=== PATIENT | female | born 1975 | race Caucasian/White ===

== ENCOUNTER 2022-07-06 10:42 | Day surgery (SDC) | payer MEDICAID, SELFPAY ==
[2022-07-06] VITALS (10 sets, daily range): BP systolic 105–139; BP diastolic 35–85; PULSE 57–68; RESP 16–20; TEMP 36–37.1; O2SAT 91–100; BMI 22.4
[2022-07-06] MEDS: LACTATED RINGERS 1000 ML 1,000 ML 100 ML IV ×2 (11:00→13:10)
[2022-07-06 11:15] LABS: Ur HCG Qualitative* Negative (Negative)
[2022-07-06] MEDS: SODIUM CHLORIDE 0.9 % (FLUSH) 10 ML SYRINGE IVF (11:30)
[2022-07-06] MEDS: ETHYL CHLORIDE 1 APPLICATION 1 APPLIC TOPICAL (11:30)
[2022-07-06] MEDS: LIDOCAINE 1% MDV 20 ML INJECTION (12:25)
[2022-07-06] MEDS: BUPIVACAINE 0.25% 30 ML 20 ML INJECTION (12:25)
[2022-07-06] MEDS: CEFAZOLIN 2 GM INJ IVP (13:07)
[2022-07-06] MEDS: BUPIVACAINE 0.25% 30 ML INJECTION (13:29)
--- NOTE | 2022-07-06 13:44 | SUR.OPER ---
deficit was 100ml
--- NOTE | 2022-07-06 13:50 | SUR.OPER ---
Cauterization of uterine perforation.
--- NOTE | 2022-07-06 13:50 | PM.PROC ---
Procedure Note Time Seen by Provider: 13:50 Date Seen: 07/06/22 Date of procedure: 07/06/22 Will [facility] bill your pro fee for this procedure?: Yes Procedure: biology laboratory assistant op note: Preoperative diagnosis: 46- year-old with irregular bleeding, s/p endometrial ablation Postoperative diagnosis: Same, incidental uterine perforation Procedure: Hysteroscopy, uterine perforation, Diagnostic laparoscopy with cauterization uterine perforation site Operative note: I was asked to assist Dr. Nan Castellanos with the laparoscopic portion of the patient's surgery. I aided in dissection, visualization, and obtaining hemostasis. Please see Dr. Castellanos note for complete details. Surgeon: Serene Miranda MD
--- NOTE | 2022-07-06 13:58 | W.ANESCHARGE ---
Anesthesia Charges Start Date/Time Anesthesia Start Date: 07/06/22 Anesthesia Start Time: 12:00 Stop Date/Time Anesthesia Stop Date: 07/06/22 Anesthesia Stop Time: 13:55 Summary Emergency: No
--- NOTE | 2022-07-06 14:01 | W.ANESCHARGE ---
Anesthesia Charges Start Date/Time Anesthesia Start Date: 07/06/22 Anesthesia Start Time: 12:00 Stop Date/Time Anesthesia Stop Date: 07/06/22 Anesthesia Stop Time: 13:55 Summary Emergency: No
--- NOTE | 2022-07-06 14:05 | P.GYNPRC_ITS ---
Procedure Note Date Seen: 07/06/22 Procedure Details: PREOPERATIVE DIAGNOSIS: 1. Abnormal uterine bleeding. 2. Pelvic pain following endometrial ablation. 2. History of endometrial ablation. 3. History of sections x2. POSTOPERATIVE DIAGNOSIS: 1. Abnormal uterine bleeding. 2. Pelvic pain following endometrial ablation. 2. History of endometrial ablation. 3. History of sections x2. NAME OF PROCEDURE: 1. Diagnostic hysteroscopy. 2. Diagnostic laparoscopy with cauterization uterine perforation site. SURGEON: Jasmin. HOME SERVICE DEMONSTRATOR: Ruth for the laparoscopic portion of the procedure. ANESTHESIA: Monitored anesthesia care and paracervical block, [facility] the [facility]. COMPLICATIONS: Anterior uterine perforation. ESTIMATED BLOOD LOSS: 20 mL. FINDINGS: Stenotic cervix. Dense intrauterine synechiae obliterating the endometrial cavity. Perforation the uterus anteriorly in the mid body of the uterus. Dense adhesions involving the bladder to the cervix and lower uterine segment almost extending to the perforation site. Herniation of omentum through the rectus muscles in the midline with adhesion of the omentum to the anterior abdominal wall from the umbilicus to the suprapubic region. Normal-appearing ovaries. Evidence prior tubal ligation using Filshie clips. PATHOLOGY SPECIMENS: None. PROCEDURE: After obtaining informed consent, the patient was taken to the operating room where she received monitored anesthesia care. She was prepared and draped in the normal sterile fashion, in the dorsal lithotomy position. An open-sided bivalve speculum was introduced into the vagina and the cervix visualized. The anterior lip of the cervix was grasped with a single-tooth tenaculum for traction. A paracervical block was then administered using a total of 20 mL of a 50/50 mixture of 0.25% Marcaine and 1% lidocaine plain. The uterus could not be sounded, as resistance was met at the internal cervical os at 4 cm. I was unable to insert Hegar dilators through the internal cervical os. Tiny dilators were then used in a stepwise fashion to identify the internal cervical os and gently dilated it. Once the largest of the small dilator set was successfully used, I used Hegar dilators, the 1/2, and 3/4 passed with minimal difficulty. When I used the 5/6 Hegar dilator, I met some resistance at the internal cervical os, and then felt it pop through. A 6 mm hysteroscope was then advanced under direct visualization through the cervix into the uterine cavity. Sterile normal saline was used as distending medium. Almost within seconds, the fluid deficit reached 900 mL. The hysteroscope was removed. Uterine perforation was suspected but could not be confirmed visually before removal of the scope. I then obtained a disposable 2 mm scope from the [facility], and gently explored the cervix in uterine cavity with the smaller scope. It was immediately apparent that there was an anterior uterine perforation. The hysteroscope was removed. A [employer] uterine manipulator was sofi greg. A Messina catheter was placed into the bladder. Preparations were made for laparoscopy. The patient was prepped for abdominal surgery and sterilely draped. I changed gloves and my attention was turned to the abdomen. The inferior aspect of the umbilical fold was injected with 0.25% Marcaine plain. A 5 mm vertical incision was then made within the umbilical fold using a scalpel. The subcutaneous tissues were bluntly dissected with a Johanny clamp to the fascia. A direct entry technique was used to place a 5 mm laparoscopic port with CO2 gas set to a 5 mmHg. The trocar was removed leaving the sleeve in place. The CO2 gas flow was turned to high flow to achieve pneumoperitoneum. The 5 mm laparoscope was used then to carefully inspect the abdomen and pelvis with findings noted above. Pictures were taken for documentation purposes. The patient was placed in Trendelenburg positioning. And additional 5 mm port was placed in the right lower quadrant under direct visualization after first anesthetizing the skin and fascia with 0.25% Marcaine plain. The uterus was elevated using the uterine manipulator. The bowels were gently pushed from the pelvis cephalad. The fluid within the abdomen, which comprised the hysteroscopy fluid, was removed with suction pulvi mixer operator. A total of 800 mL was removed. The uterine perforation site was cauterized using the [facility] electrocautery. Edith was also placed over the small defect for hemostasis. The bladder was carefully inspected in noted to be free of obvious defects. The urine was noted to be clear within the catheter. There was no evidence of bowel injury or blood within the abdomen except for the small clot that had been initially seen over the perforation site on anterior uterine serosa. All instruments were then removed under direct visualization. Pneumoperitoneum was allowed to escape. The skin at both port sites was closed in a subcuticular fashion with 4-0 Vicryl. Exofin was then placed over the incisions. The uterine manipulator and Messina catheter were removed. The patient tolerated the procedure well. Sponge, lap, and needle counts were correct x2. The patient was taken to the recovery room awake and in stable condition.
[2022-07-06] MEDS: HYDROCODONE/ACETAMIN 7.5-325 TABLET 1 TAB PO (14:41)
--- NOTE | 2022-07-06 14:41 | W.ANESCHARGE ---
Anesthesia Charges Start Date/Time Anesthesia Start Date: 07/06/22 Anesthesia Start Time: 12:00 Stop Date/Time Anesthesia Stop Date: 07/06/22 Anesthesia Stop Time: 13:55 Summary Emergency: No
== END 2022-07-06 22:00 | disposition home or self-care (01) ==
PROVIDERS: PCP Family Medicine; Visit Provider Obstetrics & Gynecology
PROC: 0UDB8ZZ Extraction of Endometrium, Via Natural or Artificial Opening Endoscopic (ICD-10-PCS; CPT 58558; principal; 2022-07-06 12:00)
PROC: (CPT 49320; 2022-07-06 12:00)
DX: N93.8 Other specified abnormal uterine and vaginal bleeding (principal); R10.2 Pelvic and perineal pain; G89.18 Other acute postprocedural pain; N99.71 Accidental puncture and laceration of a genitourinary system organ or structure during a genitourinary system procedure; N88.2 Stricture and stenosis of cervix uteri; N73.6 Female pelvic peritoneal adhesions (postinfective)
CPT/HCPCS: 58555; 58662; 00840; 81025; A9270; J0690; J1100; J1170; J1885; J2250; J2405; J2704; J3010; J3490; J7120

== ENCOUNTER 2022-10-05 06:38 | Inpatient (IN) | payer MEDICAID, SELFPAY ==
[2022-10-05] VITALS (26 sets, daily range): BP systolic 111–156; BP diastolic 65–96; PULSE 62–97; RESP 16–18; TEMP 36.6–37.1; O2SAT 97–100; BMI 22.9
[2022-10-05 07:10] LABS: Ur HCG Qualitative* Negative (Negative)
[2022-10-05] MEDS: SODIUM CHLORIDE 0.9 % (FLUSH) 10 ML SYRINGE IVF (07:25)
[2022-10-05] MEDS: LACTATED RINGERS 1000 ML 1,000 ML 100 ML IV ×2 (07:25→08:56)
[2022-10-05 07:44] LABS: SARS PCR* Negative SARS-CoV-2 (Negative)
--- NOTE | 2022-10-05 07:59 | W.PM.GYNPROC ---
Procedure Note Date Seen: 10/05/22 Procedure Details: PREOPERATIVE DIAGNOSIS: 1.? Abnormal uterine bleeding. 2.? Pelvic pain following endometrial ablation. 2.? History of endometrial ablation. 3.? History of sections x2. 4. Endometriosis. 5. Pelvic adhesions. 6. History of tubal ligation. POSTOPERATIVE DIAGNOSIS: 1.? Abnormal uterine bleeding. 2.? Pelvic pain following endometrial ablation. 2.? History of endometrial ablation. 3.? History of sections x2. 4. Endometriosis. 5. Pelvic adhesions. 6. History of tubal ligation. NAME OF PROCEDURE: 1. Total abdominal hysterectomy. 2. Bilateral salpingectomies. 3. Extensive lysis of adhesions. 4. Excisionally biopsy of left pelvic sidewall endometriosis. SURGEON: Jasmin ENERGY CONSERVATION REPRESENTATIVE: Ruth. ANESTHESIA: General endotracheal. TAP block. COMPLICATIONS: None. ESTIMATED BLOOD LOSS: 300 cc. DRAINS: Messina to gravity. URINE OUTPUT: 700 mL. FLUIDS: 1500 mL crystalloid. FINDINGS: Dense omental adhesions to the abdominal wall from umbilicus to just above symphysis pubis. Evidence of prior tubal ligation/Filshie clips. Normal-appearing uterus. Dense adhesions between the bladder and lower uterine segment/cervix. Normal-appearing ovaries bilaterally, both containing small hemorrhagic follicle cysts. Adhesions between the sigmoid colon and left pelvic sidewall and round ligament. Endometriosis implants in the left ovarian fossa, 2 of 3 overlying the left ureter in its course through the left pelvic sidewall. PROCEDURE: After obtaining informed consent, the patient was taken to the operating room where general anesthesia was obtained without difficulty. A TAP block was also administered under ultrasound guidance by Anesthesia. She was prepared and draped in the normal sterile fashion in the dorsal supine position with legs in Kenneth stirrups. A Messina catheter was inserted sterilely into the bladder during the prep. A Pfannenstiel skin incision was made with a scalpel along the line of the patient's previous Pfannenstiel scar. This incision was carried down to the underlying layer of fascia with the Bovie. The fascia was incised in the midline and the incision extended laterally. The superior and inferior aspects of the fascial incision were grasped with Torin clamps and the underlying rectus muscles dissected off sharply. The rectus muscles were in the midline. During the dissection, the underlying peritoneum was entered. Omental adhesions to the peritoneum and rectus muscles were noted from umbilicus down almost to symphysis pubis. The omentum was taken down from the rectus muscles and peritoneum by clamping could small sections, transecting the tissues, and suture ligating the pedicles with 2-0 Vicryl in a serial fashion until the omentum was completely free. Excellent hemostasis was visualized. The peritoneal incision was extended inferiorly with good visualization of the bladder. The patient was placed in some mild Trendelenburg positioning. The bowels were packed cephalad using a large moistened laparotomy sponge. The Gerardo O retractor was placed in the incision. This provided excellent visualization of the pelvis. The pelvis was inspected with the findings noted above. [place] clamps were placed at the cornua bilaterally for traction. Both ureters were identified along their courses within the pelvic sidewall. Endometriosis implants x3 were noted in the left pelvic sidewall, and 2 of them were directly over top of the ureter in its course along the pelvic sidewall. The most proximal implant, which did not overlie the ureter, was grasped with a DeBakey clamp, and excised from the left pelvic sidewall by opening up the peritoneum surrounding the implant. The implant was passed off the field, labeled left pelvic sidewall biopsy. Hemostasis around the peritoneal edges was obtained where needed with electrocautery. The left fallopian tube was elevated with a [place] clamp. The hand-held LigaSure device was used to seal, and transect the tissues connecting the left tube to the left ovary, as well as the broad ligament attachments. The tube was disconnected from the uterus at the left uterine cornua and the tube with the attached Filshie clip was passed from the field. The ovary was inspected and during dissection of the tube, the hemorrhagic cyst on the left ovary was disrupted and was noted to be actively bleeding. Electrocautery was not successful in obtaining hemostasis. The cyst defect was then over sewed in a running locking fashion with 3-0 Vicryl. Hemostasis was obtained. The right fallopian tube was then elevated with Buddy clamp, and the LigaSure device was used to seal and excise the tube in a similar fashion up to the Filshie clamp on the right. Hemostasis was visualized. The right right round ligament was doubly clamped with Torin clamps, transected, and suture ligated with 0 Vicryl. The anterior leaf of the broad ligament was opened to the midline from the right side. This involves taken down the bladder adhesions to the lower uterine segment and cervix, which was done with electrocautery. The bladder was pushed inferiorly with a sponge. The right ovarian ligament was then isolated, clamped across with 2 Tarah clamps, transected, and doubly suture ligated with 0 Vicryl. Hemostasis was observed. The uterine vessels were skeletonized on the right side. The vessels were clamped across with a Tarah and a straight clamp, transected, and suture ligated. Excellent hemostasis was obtained. Attention was then turned to the left side. The sigmoid adhesions to the left pelvic sidewall and left round ligament were taken down sharply with Metzenbaum scissors. The left round ligament was clamped with 2 Torin clamps, transected, and suture ligated with 0 Vicryl. The anterior leaf of the broad ligament was opened from the left side to the midline. The bladder was further pushed caudally with a sponge stick. The left ovarian ligament was clamped with 2 Tarah clamps, transected, and doubly suture ligated with 0 Vicryl. Hemostasis was visualized. The left uterine vessels were skeletonized and then clamped across with Tarah clamps, transected, and suture ligated. Excellent hemostasis was obtained. The remaining cardinal and uterosacral ligament attachments on both sides were clamped with straight Tarah clamps adjacent to the lower uterine segment and cervix, transected and suture ligated with 0 Vicryl. Excellent hemostasis was obtained. Two Tarah clamps were placed across the vaginal cuff angles. The uterus with attached cervix was then transected and passed off the field. The vaginal cuff angles were fixed with Tarah stitches of 0 Vicryl. The intervening vaginal cuff was closed with [id number] sutures of 0 Vicryl. The abdomen and pelvis were then copiously irrigated. Small bleeding vessels were isolated with DeBakey clamps and cauterized for hemostasis. Edith was placed over raw tissue edges for additional hemostasis. At this point, some bleeding was noted from the right ovary, where the small right ovarian hemorrhagic cyst had ruptured. The cyst base was oversewed with 3-0 Vicryl in a running locking fashion for hemostasis. All laparotomy sponges and instruments were then removed. The subfascial tissues were carefully inspected and hemostasis assured. The fascia was reapproximated in a running fashion with a looped 0 Maxon suture. The subcutaneous tissues were copiously irrigated and hemostasis assured. The skin was undermined where tight and retracted along the inferior edge of the incision. The skin was closed in a subcuticular fashion with 4-0 Vicryl. A Mepilex dressing was applied over the incision. The patient tolerated the procedure well. Sponge, lap, needle, instrument counts were reported as correct x2. The patient was taken to recovery room awake and in stable condition. She received 2 g of IV Ancef preoperatively. The uterus was weighed at the conclusion of the procedure, weight was 58 g. PATHOLOGY SPECIMEN(S): 1. Left pelvic sidewall biopsy of endometriosis. 2. Left fallopian tube. 3. Right fallopian tube. 4. Uterus with attached cervix and right Filshie clip. A modifier should be used as the hysterectomy took additional time due to the extensive lysis of adhesions, approximately 30 minutes.
[2022-10-05] MEDS: CEFAZOLIN 2 GM INJ IVP (08:13)
[2022-10-05 08:18] LABS: Creatinine* 0.6 mg/dL (0.5-1.5); Estimated Glomerular Filt Rate 113 ml/min
--- NOTE | 2022-10-05 09:56 | W.PM.NB ---
Nerve Block Nerve Block Time Seen by Provider: 08:13 Date Seen: 10/05/22 Type of block requested by surgeon for post-operative analgesia: TAP Side: bilateral Time out performed: Yes Verification of patient name: Yes Verification of date of : Yes Site marking: site marked Name of person performing procedure: Jose Continuous monitoring Was continuous monitoring of O2 sat, B/P, monitoring and evaluation advisor, recorded every 15 minutes?: Yes Procedure Checklist: sterile prep, needles and gloves Ultrasound guided. Images saved: Yes Medications given in 5ml increments after negative aspiration: Marcaine %: 0.25 mL: 30 Needle gauge: 20 and Exparel mL: 10 Patient tolerated procedure well: Yes Additional comments: Needle noted adjacent to nerve Block Charges Block Charge (with Pro Fee): TAP Bilateral Use of Ultrasound Machine for Block: Yes- US Guidance/pain block
--- NOTE | 2022-10-05 10:54 | PM.PROC ---
Procedure Note Time Seen by Provider: 10:54 Date Seen: 10/05/22 Date of procedure: 10/05/22 Will [facility] bill your pro fee for this procedure?: Yes Procedure: trading assistant op note: Preoperative diagnosis: 46-year-old with pelvic pain, dysmenorrhea, known endometriosis and menometrorrhagia Postoperative diagnosis: Same Procedure: Total abdominal hysterectomy/lysis of adhesions/bilateral salpingectomy Operative note: I was asked to assist Dr. Castellanos with the patient's surgery. I aided in dissection, visualization, and obtaining hemostasis. Please see Dr. Castellanos note for complete details. Lysis adhesions to promote visualization took 40 additional minutes above time typically used for a total abdominal hysterectomy. Surgeon: eSrene Miranda MD
--- NOTE | 2022-10-05 11:24 | W.ANESCHARGE ---
Anesthesia Charges Start Date/Time Anesthesia Start Date: 10/05/22 Anesthesia Start Time: 08:02 Stop Date/Time Anesthesia Stop Date: 10/05/22 Anesthesia Stop Time: 11:20 Summary Emergency: No
[2022-10-05] MEDS: ACETAMINOPHEN 1,000 MG/100 ML INJ 1000 MG IVPB (11:30)
--- NOTE | 2022-10-05 11:43 | W.ANESCHARGE ---
Anesthesia Charges Start Date/Time Anesthesia Start Date: 10/05/22 Anesthesia Start Time: 08:02 Stop Date/Time Anesthesia Stop Date: 10/05/22 Anesthesia Stop Time: 11:20 Summary Emergency: No
[2022-10-05] MEDS: HYDROmorphone 0.5 mg/0.5 ml inj IVP (11:50)
[2022-10-05] MEDS: MEPERIDINE 25 MG/ML INJ 12.5 MG IVP (12:05)
[2022-10-05] MEDS: OXYCODONE 5 MG TABLET PO ×3 (13:21→21:30)
[2022-10-05] MEDS: LACTATED RINGERS 1000 ML 1,000 ML 125 ML IV (13:30)
[2022-10-05] MEDS: LORazepam 0.5 MG TABLET PO (16:00)
[2022-10-05] MEDS: KETOROLAC 30 MG/ML inj IVP ×2 (17:34→23:29)
[2022-10-05] MEDS: ACETAMINOPHEN 325 MG TABLET 1000 MG PO (22:24)
[2022-10-06 03:43] VITALS: BP 128/74; PULSE 69; RESP 18; O2SAT 100
[2022-10-06] MEDS: OXYCODONE 5 MG TABLET PO ×5 (03:54→20:37)
[2022-10-06] MEDS: ACETAMINOPHEN 500 MG TABLET 1000 MG PO ×4 (03:54→23:10)
[2022-10-06 07:21] LABS: Hemoglobin* 11.2 gm/dL (12.0-16.0)
[2022-10-06] MEDS: IBUPROFEN 600 MG TABLET PO ×3 (07:21→19:00)
[2022-10-06 07:34] LABS: Creatinine* 0.7 mg/dL (0.5-1.5); Est. Creatinine Clearance* 103.46; Estimated Glomerular Filt Rate 109 ml/min
[2022-10-06] MEDS: DOCUSATE SODIUM 100 MG CAPSULE PO ×2 (08:39→23:10)
[2022-10-06 08:40] VITALS: BP 111/72; PULSE 74; RESP 16; TEMP 37.1; O2SAT 100
--- NOTE | 2022-10-06 09:03 | P.GYNPN_ITS ---
SECURITY OPERATIONS ENGINEER - A/P Assessment and plan (1) S/P abdominal hysterectomy: Problem details: with bilateral salpingectomies, extensive lysis of adhesions and biopsy of endometriosis Status: Acute Postoperative Procedures: Procedures Operation Date: 10/05/22 08:00 Actual Procedure Side Surgeon p Total Abdominal Hysterectomy, Bilateral Salpingectomies, biopsy of Endometriosis, Lysis of Adhesions Nan Castellanos MD Postoperative day: 1 Postoperative status: doing well Postoperative plan: routine post-op care Time Spent With Patient Time: Total time spent is greater than 50% in coordination of care (as documented) at patient's floor/unit and/or counseling patient: Time with patient: less than 15 minutes SECURITY OPERATIONS ENGINEER- PN:Subj Post-Op Subjective Time Seen by Provider: 08:30 Date Seen: 10/06/22 Post Operative Details: Post-operative day number 1: status post total abdominal hysterectomy, bilateral salpingectomies, extensive lysis of adhesions, and excisional biopsy of pelvic sidewall endometriosis. Subjective: patient has no complaints, pain is well controlled (was moderately uncomfortable overnight), voiding without difficulty, patient is tolerating oral intake and passing flatus SECURITY OPERATIONS ENGINEER-PN: Obj Exam Physical Exam: Vital signs: Temp Pulse Resp BP Pulse Ox O2 Del Method 98.8 F 74 16 111/72 100 10/06/22 08:40 10/06/22 08:40 10/06/22 08:40 10/06/22 08:40 10/06/22 08:40 10/06/22 08:40 Constitutional: Constitutional: no acute distress and cooperative Routine HEENT Exam: Head: Present normocephalic Eye: Present normal appearance Routine Respiratory Exam: Respiratory: Present CTA bilaterally Routine Cardiovascular Exam: Cardiovascular: Present RRR Routine Abdominal Exam: Abdominal: Present distended (mildly) and soft; Absent tenderness Comments: incision clean, dry, intact Routine Extremities Exam: Extremities: Present normal inspection Routine Neurological Exam: Neurological: Present alert and oriented X3 Routine Psychiatric Exam: Psychiatric: Present normal affect Urinary Catheter Management: Urethral: Cath placed during this visit: yes, but has since been removed by the nurse Urethral indwelling: No Reason for continuing: decision to DC catheter Insertion date: 10/05/22 Insertion time: 08:25 Removal date: 10/05/22 Removal time: 18:45 SECURITY OPERATIONS ENGINEER - PN: Obj Data Labs Labs: Laboratory Results - last 24 hr 12/10/06/22 10/06/22 07:42 06:59 06:59 Hgb 11.2 L Creatinine 0.7 Estimated Creat Clear 103.46 Estimated GFR 109 Blood Type A Positive Antibody Screen NEGATIVE
[2022-10-06 12:48] VITALS: BP 109/71; PULSE 66; RESP 16; TEMP 36.9; O2SAT 100
[2022-10-06 16:49] VITALS: BP 150/92; PULSE 76; RESP 20; TEMP 36.5; O2SAT 100
[2022-10-06 20:40] VITALS: BP 108/69; PULSE 68; RESP 18; TEMP 37; O2SAT 98
[2022-10-06 23:07] VITALS: BP 107/76; PULSE 63; RESP 16; TEMP 37.1; O2SAT 98
[2022-10-06] MEDS: diphenhydrAMINE 25 MG CAPSULE PO (23:10)
[2022-10-07] MEDS: OXYCODONE 5 MG TABLET PO ×3 (00:27→08:32)
[2022-10-07] MEDS: IBUPROFEN 600 MG TABLET PO ×2 (02:41→08:59)
[2022-10-07 02:42] VITALS: BP 106/55; PULSE 64; RESP 16; TEMP 36.6; O2SAT 97
[2022-10-07 02:45] VITALS: RESP 16
[2022-10-07] MEDS: ACETAMINOPHEN 500 MG TABLET 1000 MG PO ×2 (04:34→11:02)
[2022-10-07 08:33] VITALS: RESP 16
[2022-10-07 08:34] VITALS: BP 118/78; PULSE 67; RESP 16; O2SAT 97
--- NOTE | 2022-10-07 08:39 | PM.GYNDS1 ---
DS: Providers Provider Date Seen: 10/07/22 Date of admission: 10/05/22 06:38 Primary care physician: Tyler Price MD Admitting Clinician: Nan Castellanos MD Attending Physician on discharge: Nan Castellanos MD DS: Diagnosis Discharge Diagnosis (1) S/P abdominal hysterectomy: Status: Acute Problem details: with bilateral salpingectomies, extensive lysis of adhesions and biopsy of endometriosis (2) Endometriosis: Status: Acute (3) Pelvic adhesions: Status: Acute SUPERVISOR MIRROR FABRICATION-Discharge Summary Hospital Course Hospital Course: Hospital Course: Jessenia was admitted to the hospital on 10/05/2022 for a scheduled total abdominal hysterectomy with bilateral salpingectomy, lysis of adhesions and peritoneal biopsy due to dysmenorrhea, pelvic pain and known endometriosis. Her surgery was uncomplicated. Her postoperative course was also uncomplicated. By postoperative day 2, she was tolerating a regular diet, ambulating without difficulty, passing flatus and pain was well controlled with oral pain medications. She would like to be discharged home today. Labs: Preoperative hemoglobin 13.0, postoperative hemoglobin 11.2. Objective: General: Alert and oriented x3. Pleasant, woman in no acute distress. Vital signs: See EMR. Heart: Regular rate and rhythm without gallop, rub or murmur. Chest: Clear to auscultation bilaterally. Abdomen: Soft, nontender, nondistended with normal bowel sounds throughout. No CVA or flank tenderness. Incision(s): Clean, dry and intact w/ sutures. No skin adhesive as the patient has a sensitivity to glue. Pelvic: Minimal vaginal bleeding, remainder of pelvic exam deferred. Extremities: No pain, edema, cyanosis or clubbing. Assessment: 46-year-old postoperative day 2 from a JOB/bilateral salpingectomy/lysis of adhesions/peritoneal biopsy doing well. Plan: 1. Discharge home today. 2. Activity restrictions reviewed with the patient. 3. Return to clinic to see Dr. Castellanos for a postoperative visit in 2-3 weeks. Time Spent with Patient Time attestation: Total time spent providing and/or coordinating discharge services: 25 minutes SUPERVISOR MIRROR FABRICATION - Exam Physical Exam: Vital signs: Temp Pulse Resp BP Pulse Ox O2 Del Method 97.8 F 67 16 118/78 97 10/07/22 02:42 10/07/22 08:34 10/07/22 08:34 10/07/22 08:34 10/07/22 08:34 10/07/22 08:34 SUPERVISOR MIRROR FABRICATION - DS: Data Procedures Procedures: Procedures Operation Date: 10/05/22 08:00 Actual Procedure Side Surgeon p Total Abdominal Hysterectomy, Bilateral Salpingectomies, biopsy of Endometriosis, Lysis of Adhesions Nan Castellanos MD Discharge Plan Discharge Disposition: Home, Self-Care Date of Admission: 10/05/22 06:38 Attending Provider on Discharge: Serene Miranda Primary Care Provider: Tyler Price Condition: Stable Anticipated Discharge Date/Time: 10/07/22 18:36 Discharge Medications: New docusate sodium 100 mg Capsule 100 mg PO BID PRN (Reason: Constipation) Qty: 30 0RF ibuprofen 600 mg Tablet 600 mg PO Q6H PRN (Reason: Pain) Qty: 30 0RF oxycodone 5 mg Tablet 5 mg PO Q6H PRN (Reason: Moderate Pain) Qty: 20 0RF Continued Women's Multivitamin 18 mg-400 mcg- 500 mg-50 mcg tablet 1 tab PO calcium carbonate [Calcium 500] 500 mg calcium (1,250 mg) tablet,chewable 1,000 mg PO QDAY cholecalciferol (vitamin D3) 25 mcg (1,000 unit) tablet 25 mcg PO QDAY vitamin K2 40 mcg tablet 40 mcg PO DAILY metronidazole 0.75 % lotion 1 topical BID Discontinued peg 3350-electrolytes [Golytely] 236-22.74-6.74 -5.86 gram recon soln 240 ml PO Q15M Qty: 4000 0RF Rx Instructions: until fecal effluent is clear Discharge Orders: Discharge Order (Routine); Ordered 10/07/22 Ordered By: Serene Miranda Patient Education: Hysterectomy (DC) Additional Instructions: Discharge instructions were reviewed with the patient including signs and symptoms of infection and medications to use for pain.? ? ACTIVITY RESTRICTIONS: No lifting greater than 20 pounds for 6 weeks. Nothing per vagina for 6 weeks. Off work or school for 6 weeks. Do not soak the incision in water for 2 weeks. No high impact/core/strenuous exercise for 6 weeks. There is no restriction for walking or walking up and down stairs. ? Follow up with your surgeon in 2 weeks for incision check and 6 weeks for a postoperative visit or sooner as needed. Discharge Diet: Regular Follow Up Appointments: Tyler Price MD [Primary Care Provider] - Serene Miranda MD [Staff Physician] - Nan Castellanos MD [Staff Physician] - Forms: [employer] Info Instructions
== END 2022-10-07 11:02 | disposition home or self-care (01) | DRG 743 ==
LOC: OB 10-07 08:38 → MEDSURG 10-29 16:16
PROVIDERS: Admitting Provider Obstetrics & Gynecology; PCP Family Medicine; Visit Provider Obstetrics & Gynecology
PROC: 0UT94ZZ Resection of Uterus, Percutaneous Endoscopic Approach (ICD-10-PCS; CPT 52000; principal; 2022-10-05 08:00)
DX: N94.6 Dysmenorrhea, unspecified (principal); N92.1 Excessive and frequent menstruation with irregular cycle; R10.2 Pelvic and perineal pain; N73.6 Female pelvic peritoneal adhesions (postinfective); N80.102 Endometriosis of left ovary, unspecified depth; N80.352 Endometriosis of the left pelvic sidewall, unspecified depth; N80.A62 Endometriosis of left ureter, unspecified depth; N83.02 Follicular cyst of left ovary; N83.01 Follicular cyst of right ovary
CPT/HCPCS: 00840; 36415; 64488; 76942; 81025; 82565; 85018; 86850; 86900; 86901; 87635; 88305; 88307; A9270; C9290; J0131; J0330; J0690; J1100; J1170; J1885; J2175; J2250; J2370; J2405; J2704; J2710; J3010; J3490; J7120

== ENCOUNTER 2023-11-15 07:41 | Outpatient (CLI) | payer OTHER, MEDICAID, SELFPAY | END 2023-11-15 07:42 | disposition home or self-care (01) | LOC: NFLDREF 11-16 10:40 | PROVIDERS: PCP Family Medicine; Visit Provider Family Medicine | DX: Z13.220 Encounter for screening for lipoid disorders (principal); Z13.1 Encounter for screening for diabetes mellitus | CPT/HCPCS: 80061; 82947 ==

== ENCOUNTER 2023-12-13 08:18 | Outpatient (CLI) | payer OTHER, MEDICAID, SELFPAY ==
--- OUTSIDE RECORDS SUMMARY | 2023-12-13 08:20 | XMS_ITS | Clinical Summary ---
Author Name Unknown Organization [facility] Address [place], [place] [address] Care Team Providers Care Gardener Name Role Phone Delicia Ding MD Primary Care Provider [phone] Allergies Active Allergy Reactions Criticality Noted Date Comments Bupropion Hives,Arthralgia 12/23/2006 Medications Medication Sig Dispensed Refills Start Date End Date Status diazepam (VALIUM) 2 mg tablet Take 2 mg by mouth 3 times daily. 0 Active TRAZODONE HCL (TRAZODONE ORAL) Take by mouth. 0 Acti ve IBUPROFEN ORAL Take by mouth. 0 Active HYDROcodone-acetamin ophen, 5-325 mg, (NORCO) per tablet Take 1-2 tablets by mouth every 4 hours if needed for Pain. Max acetaminophen dose: 4000mg in 24 hrs. 30 tablet 0 12/22/2014 Active rx HYDROcodone-acetamin ophen, 5-325 mg, (NORCO) tablet (ED DC MED) Take 1 tablet by mouth every 4 hours if needed. 6 tablet 0 12/22/2014 Active ondansetron (ZOFRAN ODT) [address] 1 tablet on the tongue every 8 hours if needed for Nausea/Vomiting. 20 tablet 0 12/22/2014 Active hydrOXYzine pamoate (VISTARIL) 25 mg capsule Take 1 capsule by mouth 3 times daily if needed for Other (Specify) (pain and nausea.). 30 capsule 0 12/22/2014 Active Immunizations Name Administration Dates Next Due Td (Age >=7 Years) 10/24/1995 Tdap 03/03/2011 Family History Medical History Relation Name Comments Hyperlipidemia Father Other Maternal Grandmother osteope rosis Arthritis Mother Other Mother osteoperosis Relation Name Status Comments Father Maternal Grandmother Mother Social History Tobacco Use Types Packs/Day Years Used Date Smoking Tobacco: Former Cigarettes Q uit: 11/22/2006 Smokeless Tobacco: Never Alcohol Use Standard Drinks/Week Comments No 0 (1 standard drink = 0.6 oz pur e alcohol) Sex and Gender Information Value Date Recorded Sex Assigned at Not on file Gender Identity Not on file Sexual Orientation Not on file Obstetrics History Last Filed Vital Signs Vital Sign Reading Time Taken Comments Blood Pressure 132/82 12/22/2014 7:42 PM [employer] Pulse 88 12/22/2014 7:42 PM [employer] Temperature 36.9 ??C (98.5 ??F) 12/22/2014 6:12 PM CS T Respiratory Rate 15 12/22/2014 7:42 PM [employer]ATE Oxygen Saturation 99% 12/22/2014 7:42 PM [employer]ATE Inhaled Oxygen Concentration - - Weight 68 kg (150 lb) 12/22/2014 6:12 PM [employer] Height - - Body Mass Index - - Plan of Treatment Health Maintenance Due Date Last Done Comments COVID-19 vaccine series (#1) 06/11/1978 Depression screening for age 12+ 1989 HIV for age 15-65 1992 BMI (ht and wt on same day) for age 18+ 1995 Hepatitis C screening for age 18-79 1995 Tetanus booster 03/03/2021 03/03/2011, 10/24/1995 Colonoscopy through age 75 2022 Lipids for age 45-75 2022 Mammogram for age 45-75 2022 Pap test for age 21-65 06/03/2023 0, 06/03/2020, 01/08/2014, Additional history exists Influenza for age 9-49 06/24/2023 Tdap Completed 03/03/2011 Pneumococcal series for age 6-64 Aged Out No longer eligible based on patient's age to complete this topic Care Teams Gardener Relationship Specialty Start Date End Date Delicia Ding MD PCP - General Unknown Physician Specialty 12/22/14
--- NOTE | 2023-12-13 08:45 | MM_ITS ---
Final Report Patient: JESUS CAVAZOS Facility:?[facility] Patient ID:?[id number] Study:?XRay Breast Bilateral 3D W/CAD-12/13/2023 9:38:26 AM Ordering Physician:Fab Final Report: BILATERAL SCREENING MAMMOGRAM WITH COMPUTER-AIDED DETECTION AND TOMOSYNTHESIS TECHNIQUE: CC and MLO views were obtained. These mammographic images have been obtained using full-field digital technique. These mammographic images were interpreted with the benefit of computer-aided detection. Breast Tomosynthesis was used in this interpretation. COMPARISON FILM: 06/05/20. FINDINGS: There are scattered areas of fibroglandular density. IMPRESSION: There is no radiographic evidence for malignancy. ASSESSMENT: BI-RADS Category 1: Negative RECOMMENDATION: Routine screening mammogram in 1 year. A lay language report of this examination will be provided to the patient. Ernesto Umaña M.D. Diagnostic Radiologist [email or web address] DSM/sp R& Transcribed: 4:04 p.m. SP/Dictated by: Ernesto Umaña MD @ 12/14/2023 12:28:00 PM (Electronic Signature
== END 2023-12-13 08:19 | disposition home or self-care (01) ==
PROVIDERS: PCP Family Medicine; Visit Provider Family Medicine
DX: Z12.31 Encounter for screening mammogram for malignant neoplasm of breast (principal)
CPT/HCPCS: 77063; 77067